=== PATIENT | female | born 1975 | race African-American/Black ===

== ENCOUNTER 2018-02-22 12:39 | Emergency (ER) | payer OTHER ==
[~2018-02-22] VITALS: Ht 162.6 cm; Wt 81.6 kg
[2018-02-22] MEDS ORDERED: CYCLOBENZAPRINE10 MG ORAL (13:15)
[2018-02-22] MEDS ORDERED: Ketorolac 60mg Inj IM ONE (13:15)
[2018-02-22] MEDS ORDERED: SILVADENE20 GM TP (13:15)
[2018-02-22] MEDS ORDERED: IBUPROFEN600 MG ORAL (13:15)
[2018-02-22] MEDS ORDERED: Cyclobenzaprine 10mg Tab ORAL ONE (13:15)
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
[2018-02-22 14:10] VITALS: BP 146/90
[2018-02-22 14:13] VITALS: BP 146/90
== END 2018-02-22 14:46 | disposition home or self-care (01) ==
LOC: EDBD 12:39 → EMR 13:24
DX: T21.11XA Burn of first degree of chest wall, initial encounter (principal); V43.52XA Car driver injured in collision with other type car in traffic accident, initial encounter; W22.12XA Striking against or struck by front passenger side automobile airbag, initial encounter; Y92.9 Unspecified place or not applicable
CPT/HCPCS: 96372; 99284